=== PATIENT | female | born 2005 | race Caucasian/White ===

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

== ENCOUNTER 2025-01-22 09:09 | Emergency (ER) | payer BC ==
[2025-01-22] MEDS: Acetaminophen/HYDROcodone 325-5 MG Tab PO ONE (09:38)
[2025-01-22] MEDS: Amoxicillin/Clavulanate K 875-125 MG Tab PO ONE (09:38)
[2025-01-22] MEDS: Ketorolac 30 MG/ML SDV IM ONE (10:26)
[2025-01-22] MEDS: Acetaminophen/oxyCODONE 325-5 MG Tab PO ONE (10:27)
== END 2025-01-22 11:20 | disposition home or self-care (01) ==
LOC: MW.ED 09:09
DX: S61.451A Open bite of right hand, initial encounter (principal); Z79.899 Other long term (current) drug therapy; W54.0XXA Bitten by dog, initial encounter
CPT/HCPCS: 73100; 96372; 99283; A9270; J1885

== ENCOUNTER 2025-01-24 14:14 | Emergency (ER) | payer BC | END 2025-01-24 15:46 | disposition home or self-care (01) | LOC: MW.ED 14:14 | DX: S63.501A Unspecified sprain of right wrist, initial encounter (principal); Z79.899 Other long term (current) drug therapy; Z75.3 Unavailability and inaccessibility of health-care facilities; W01.0XXA Fall on same level from slipping, tripping and stumbling without subsequent striking against object, initial encounter | CPT/HCPCS: 73110-26-RT; 73110-RT; 99283 ==

== ENCOUNTER 2025-03-05 15:26 | Emergency (ER) | payer BC | END 2025-03-05 18:16 | disposition home or self-care (01) | LOC: MW.ED 15:26 | DX: S06.0X0A Concussion without loss of consciousness, initial encounter (principal); S16.1XXA Strain of muscle, fascia and tendon at neck level, initial encounter; Z79.899 Other long term (current) drug therapy; W22.8XXA Striking against or struck by other objects, initial encounter | CPT/HCPCS: 70450; 72125; 99284; A9270; 99283 ==

== ENCOUNTER 2025-03-07 10:43 | Emergency (ER) | payer BC ==
[2025-03-07] MEDS: Ketorolac 30 MG/ML SDV IVPUSH ONE (12:22)
[2025-03-07] MEDS: diphenhydrAMINE 50 MG/ML SDV IVPUSH ONE (12:23)
[2025-03-07] MEDS: Magnesium Sulfate 2 GM/50 mL 2 GM in Premix Bag 1 BAG IV ONE (12:30)
== END 2025-03-07 14:22 | disposition home or self-care (01) ==
LOC: MW.ED 10:43
DX: R51.9 Headache, unspecified (principal); S06.0X0D Concussion without loss of consciousness, subsequent encounter; Z79.899 Other long term (current) drug therapy; W19.XXXD Unspecified fall, subsequent encounter
CPT/HCPCS: 96365; 96375; 99283; J1200; J1885; J2765; J3475; J7030

== ENCOUNTER 2025-04-30 20:35 | Emergency (ER) | payer BC ==
[2025-04-30 21:20] LABS: BASOPHILS ABSOLUTE AUTO 0.04 K/uL (0.00-0.20); BASOPHILS PERCENT AUTO 0.3 % (0.0-1.0); EOSINOPHILS ABSOLUTE AUTO 0.13 K/uL (0.00-0.45); EOSINOPHILS PERCENT AUTO 0.9 % (0.0-6.0); IMMATURE GRAN ABSOLUTE AUTO 0.04 K/uL (0.00-0.05); IMMATURE GRAN PERCENT AUTO 0.3 % (0.0-0.4); LYMPHOCYTES ABSOLUTE AUTO 1.86 K/uL (1.00-4.80); LYMPHOCYTES PERCENT AUTO 13.6 % (24.0-44.0); MEAN PLATELET VOLUME 10.6 fL (9.4-12.3); MONOCYTES ABSOLUTE AUTO 0.86 K/uL (0.00-0.80); MONOCYTES PERCENT AUTO 6.3 % (0.0-8.0); NEUTROPHILS ABSOLUTE AUTO 10.78 K/uL (1.80-7.70); NEUTROPHILS PERCENT AUTO 78.6 % (41.0-71.0); NRBC ABSOLUTE 0.00 K/uL (0.00-0.02); NRBC PERCENT 0.0 /100WBC (0.0-0.2); PLATELET COUNT,PLT 366 K/uL (150-400); RED BLOOD CELL COUNT 4.76 M/uL (4.10-5.30); WHITE BLOOD CELL COUNT,WBC 13.71 K/uL (3.9-11.3)
[2025-04-30 21:51] LABS: A/G RATIO 2.0 (0.9-1.6); ALANINE AMINOTRANSFERASE,ALT 18.0 IU/L (14-63); ASPARTATE AMNIOTRANSFERASE,AST 18.0 IU/L (15-37); BILIRUBIN TOTAL 1.0 mg/dL (0.2-1.0); BLOOD UREA NITROGEN,BUN 13.0 mg/dL (7.0-18.0); CARBON DIOXIDE,CO2 27.4 mmol/L (21.0-32.0); CHLORIDE,CL 107.0 mmol/L (98-107); CREATININE 0.7 mg/dL (0.6-1.0); EST CRCL DRUG DOSING (CG) 129.32 mL/min; GLUCOSE RANDOM 101.0 mg/dL (74-106); POTASSIUM,K 3.6 mmol/L (3.5-5.1); PROTEIN TOTAL,TP 6.6 g/dL (6.4-8.2); SODIUM,NA 142.0 mmol/L (136-145)
[2025-04-30 21:56] LABS: ESTIMATED GFR 127.0 mL/min (>60)
[2025-04-30] MEDS ORDERED: Sodium Chloride 0.9% 10 ML Syringe FLUSH PRN (22:01)
[2025-04-30] MEDS ORDERED: Sodium Chloride 0.9% 2.5 ML Syringe FLUSH PRN (22:01)
[2025-04-30 22:44] LABS: GLUCOSE,URINE NEGATIVE (NEGATIVE); OCCULT BLOOD,URINE LARGE (NEGATIVE)
[2025-04-30] MEDS: Ketorolac 30 MG/ML SDV IVPUSH ONE (22:51)
[2025-04-30] MEDS: Ondansetron 4 MG/2 ML SDV IVPUSH ONE (22:51)
[2025-04-30 22:56] LABS: APPEARANCE,URINE SLT CLOUDY
[2025-04-30 22:57] LABS: EPITHELIAL CELLS,URINE FEW (NONE-FEW)
[2025-04-30] MEDS: Iopamidol 755 MG/ML 500 ML Multipack Bottle IVPUSH STA (23:17)
== END 2025-05-01 00:18 | disposition home or self-care (01) ==
LOC: MW.ED 20:35
DX: S30.11XA Contusion of abdominal wall, initial encounter (principal); Z79.899 Other long term (current) drug therapy; X58.XXXA Exposure to other specified factors, initial encounter; Y93.89 Activity, other specified
CPT/HCPCS: 36415; 74177; 80053; 81001; 83690; 84703; 85025; 96361; 96374; 96375; 99284; J1885; J2405; J7030; Q9967; 99283